=== PATIENT | female | born 1975 | race Caucasian/White ===

== ENCOUNTER 2017-07-14 08:32 | Day surgery (SDC) | payer OTHER ==
[~2017-07-14 08:32] MED LIST: Acetaminophen TAB* 325 MG PO ONE; Buffered Lidocaine 0.9% SYRIN* 5 ML/SYR SYRINGE INTRADERM ONE; Dexamethasone IV* 4 MG/ML 1 ML (4 MG) IV SLOW PU ONE; Famotidine IV* 10 MG/ML 2 ML (20 mg) IV ONE; Midazolam* 1 MG/ML 2 ML VIAL (2 MG) ONE; fentaNYL* 50 MCG/ML 2 ML VIAL (100 MCG VIAL) ONE
[2017-07-14] MEDS ORDERED: ceFAZolin 2 GM PREMIX (*) 2 GM/50 ML BAG IVPB ONE (08:41)
[2017-07-14] MEDS ORDERED: Acetaminophen TAB* 325 MG ONE (08:41)
[2017-07-14] MEDS ORDERED: Dexamethasone IV* 4 MG/ML 1 ML (4 MG) ONE ×2 (08:41→10:51)
[2017-07-14] MEDS ORDERED: Famotidine IV* 10 MG/ML 2 ML (20 mg) ONE (08:41)
[2017-07-14] MEDS ORDERED: Ondansetron INJ* 2 MG/ML VIAL IV PRN (08:44)
[2017-07-14] MEDS ORDERED: HYDROcodone/ACETAMIN 5-325 MG* 1 TAB PO PRN (08:44)
[2017-07-14] MEDS ORDERED: PROCHLORPERAZINE INJ 5 MG/ML 2 ML VIAL IV PRN (08:44)
[2017-07-14] MEDS ORDERED: HYDROmorphone INJ* 1 MG/ML CARPUJECT SYRINGE IV PRN (08:44)
[2017-07-14] MEDS ORDERED: oxyCODONE/Acetamin 5/325 MG* TAB PO PRN (08:44)
[2017-07-14] MEDS ORDERED: fentaNYL* 50 MCG/ML 2 ML VIAL (100 MCG VIAL) IV PRN (08:44)
[2017-07-14] MEDS ORDERED: oxyCODONE TAB* 5 MG TAB PO PRN (08:44)
[2017-07-14] MEDS ORDERED: DiMENhydriNATE IV* 50 MG/ML VIAL IV PUSH PRN (08:44)
[2017-07-14] MEDS ORDERED: Ibuprofen TAB* 600 MG PO PRN (08:44)
[2017-07-14] MEDS ORDERED: Propofol* 10 MG/ML 20 ML BTL IV PUSH ONE ×2 (10:03→11:06)
[2017-07-14] MEDS ORDERED: Lidocaine 1% INJ* 10 MG/ML 30 ML SDV ONE (10:13)
[2017-07-14] MEDS ORDERED: Bupivacaine 0.5% SDV PF* 30 ML VIAL ONE (10:14)
[2017-07-14] MEDS ORDERED: Ondansetron INJ* 2 MG/ML VIAL ONE (10:56)
[2017-07-14] MEDS ORDERED: Ketorolac INJ* 30 MG/ML 1 ML VIAL ONE (10:56)
[2017-07-14 12:08] VITALS: BP 107/67
--- NOTE | 2017-07-14 21:03 | OP ---
DATE OF OPERATION: 07/14/17 [facility] DATE OF : 75 SURGEON: Silvestre Shepherd DPM FAN ENGINE ENGINEER: None. ANESTHESIOLOGIST: Lexis Mejia MD ANESTHESIA: MAC with local. PRE-OP DIAGNOSIS: Painful bunion deformity with hallux limitus, left foot. POST-OP DIAGNOSIS: Painful bunion deformity with hallux limitus, left foot. OPERATIVE PROCEDURE: Bunionectomy, first metatarsal osteotomy, and phalangeal osteotomy, left foot. INDICATIONS: The patient with chronic left forefoot pain and deformity with decreased range of motion of the great toe, hypertrophic changes about the left great toe joint with bunion deformity. She has pain when walking and wearing closed shoes and opts for surgery at this time to decrease pain and improve her function and improve her comfort and ability to wear closed shoes. PATHOLOGY: Degenerative bone. HEMOSTASIS: Pneumatic ankle tourniquet at 250 mmHg. ESTIMATED BLOOD LOSS: Less than 10 cc. MATERIALS: Two of the 3.0-mm cannulated Jesus screws. DESCRIPTION OF PROCEDURE: The patient was brought to the operating room, placed on the operating room table in the supine position. The anesthesia department administered IV sedation and a peripheral nerve block was performed about the left foot with a 1:1 mixture of 1% lidocaine plain and 0.5% Marcaine plain. The left foot was prepped and draped in the usual fashion. Left foot was then exsanguinated with an Esmarch bandage and the pneumatic ankle tourniquet inflated to 250 mmHg above a well-padded left ankle. Attention was directed to the dorsal medial aspect of the left great toe joint, where a curvilinear incision was made. The incision was deepened through subcutaneous tissues with care being taken to retract neurovascular structures and cauterized superficial bleeders as needed. Dissection was then carried down to the deep fascia where an inverted L capsular incision was made. This allowed for exposure of the joint. There was noted to be hypertrophic bone medially and dorsomedially on the first metatarsal head. A McGlamry elevator was needed to free plantar lateral adhesions of the sesamoid apparatus. Next, an intracapsular lateral release was performed and also the extensor hallucis brevis tendon was identified dorsolaterally and transected out. This allowed for relaxation of lateral contractures. The hypertrophic bones were resected off the medial aspect of the first metatarsal head in a manner to preserve the sagittal groove. The resultant bone was sent off the field as specimen. Next, a power bur was used to smooth rough edges. Surgical site was flushed with copious amounts of normal sterile saline. Next, a Chevron-type osteotomy was performed of the first metatarsal head with the apex just dorsal and proximal to the geometric center of the first metatarsal head. The plantar wing was cut, angled slightly proximally to allow for some plantar flexion of the capital fragment. The dorsal wing was then cut as well and allowed for transposition of the capital fragment to the desired and corrected position. Temporary fixation was achieved with smooth wire from the screw set and after assessing the position with the mini-C-arm and using standard technique, a 3.0-mm cannulated Thayer screw was placed across the osteotomy site with care being taken to ensure the tip of the screw did not penetrate the joint. The temporary fixation was removed and the fixation and position was assessed with the mini C-arm. The osteotomy was inspected and found to be solid with no detectable motion or gaping and the screw was 2 fingers' tight. The redundant medial shelf of bone was resected as well and power bur was used to smooth rough edges. At this time, there was noted to be a small hollowed area in the medullary bone to the proximal portion of the capital fragment, consistent with a degenerative bone cyst. It appeared fairly small and localized and the fixation appeared stable. No motion or gaping of the capital fragment. Again, the screw was checked and found to be 2 fingers' tight. The surgical site was flushed with copious amounts of normal sterile saline. Attention was then directed to the dorsomedial aspect of the great toe and there was some hallux interphalangeus that had to be addressed. The periosteum was reflected and an angular wedge of bone was resected with the apex proximal laterally with the hinge maintained. The osteotomy was reduced and temporary fixation was achieved with the wire from the screw set and the position was assessed with a mini C-arm and using standard technique, a 3.0-mm cannulated Jesus screw was placed across the osteotomy site. The temporary fixation was removed. The fixation was assessed with the mini C-arm and the osteotomy was inspected and found to be solid with no detectable motion or gaping. The screw was 2 fingers' tight. Again, the surgical site was flushed with copious amounts of normal sterile saline. The medial capsulorrhaphy was performed, resecting redundant medial capsule. The periosteal and capsular tissues were then reapproximated and secured with 2-0 Vicryl while holding the hallux in rectus position. The subcutaneous tissues were reapproximated with 4-0 Vicryl and the skin was reapproximated with 5-0 nylon. 8 mg of dexamethasone phosphate was infiltrated about the surgical site. Surgical site was then dressed with Xeroform gauze, light compressive dressing consisting of 4x4 gauze , Sera, and light Coban wrap. The pneumatic ankle tourniquet was deflated about the left ankle and prompt hyperemic response was noted of all 5 digits of the patient's left foot. Having appeared to have tolerated the procedures and anesthesia well, the patient was transported via cart from the operating room to the Recovery in satisfactory condition with capillary refill less than 3 seconds to all digits of the left foot. [id number]/[facility] #: [id number] VIKI
--- NOTE | 2017-07-15 15:34 | RAD ---
INDICATION: Left foot surgery. COMPARISON: There are no prior studies available for comparison. TECHNIQUE: 32nd of intermittent fluoroscopic guidance were provided and 3 spot films of the left foot were obtained in the operating room. FINDINGS: The patient is status post osteotomy of the distal first metatarsal. There is a single screw spanning osteotomy site. IMPRESSION: INTRAOPERATIVE CONTROL FILMS. CPT II Codes: 6045F
== END 2017-07-14 12:26 | disposition home or self-care (01) ==
LOC: OREAST 08:32
PROVIDERS: ATTEND Podiatrist Foot Surgery
DX: M21.612 Bunion of left foot (principal); M20.5X2 Other deformities of toe(s) (acquired), left foot
CPT/HCPCS: 76000; 81025; 88304; 88311; A9270-GY; C1713; C1776; J0690; J1100; J1885; J2250; J2405; J2704; J3010